=== PATIENT | female | born 1980 | race Caucasian/White ===

== ENCOUNTER 2016-11-20 13:53 | Emergency (ER) | payer OTHER ==
--- NOTE | ~2016-11-20 | CR93 ---
[facility] A Service of [facility] & [facility] RADIOLOGY TEXT RESULTS PATIENT: AMINA LANDAVERDE LOCATION: SED : 78 UNIT #: [id number] AGE: [address]: Albaro Alford SEX: F ORDER DR: [id number] [address] [address] [id number] E MR#: [id number] Acc #: [id number] NAME: AMINA LANDAVERDE : 1980 SEX: F STUDY DATE/TIME: 11/20/2016 14:42 UNIT: SED ROOM: STUDY DESCRIPTION: CR Elbow Min 3 Views Lt Attending Physician: Albaro Alford P.A.-C. Ordering Physician: Albaro Alford P.A.-C. Primary Care Physician: No Primary Care Physician MEDICAL IMAGING REPORT This report is preliminary unless electronic signature is present. EXAM Left elbow series. HISTORY Tripped and fell. Landed on knees and elbows. Left elbow pain. FINDINGS AP, lateral and oblique radiographs of the left elbow are presented. Normal bony mineralization. No traumatic fracture or malalignment. The joint spaces are intact. No joint effusion. No soft tissue defect, subcutaneous air or radiodense foreign body. Dictated by... Fred Gregg M.D. THIS IS AN ELECTRONICALLY VERIFIED REPORT Fred Gregg M.D. at 11/21/2016 10:49 PM LIBERTY/milka TD: 11/20/2016 19:05 JOB #: [id number] MEDICAL IMAGING REPORT Page 1 of 1
--- NOTE | ~2016-11-20 | CR21 ---
[facility] A Service of [facility] & [facility] RADIOLOGY TEXT RESULTS PATIENT: AMINA LANDAVERDE LOCATION: SED : 78 UNIT #: [id number] AGE: [address]: Albaro Alford SEX: F ORDER DR: [id number] [place] [id number] E MR#: [id number] Acc #: [id number] NAME: AMINA LANDAVERDE : 1980 SEX: F STUDY DATE/TIME: 11/20/2016 14:42 UNIT: SED ROOM: STUDY DESCRIPTION: CR Ankle Min 3 Views Rt Attending Physician: Albaro Alford P.A.-C. Ordering Physician: Albaro Alford P.A.-C. Primary Care Physician: No Primary Care Physician MEDICAL IMAGING REPORT This report is preliminary unless electronic signature is present. EXAM Right ankle series, 11/20/2016. HISTORY Trauma. Tripped, fell, rolled ankle, landed on knees and elbows, right lateral foot and ankle pain. FINDINGS AP, lateral and oblique radiographs of the right ankle are presented. No traumatic fracture or malalignment. Question mild soft tissue swelling lateral aspect of the ankle, likely related to the patient's stated trauma. This could in part be projectional in nature. Correlate with exam. No indication of joint effusion. No soft tissue defect, subcutaneous air or radiodense foreign body. Small plantar calcaneal spur. Dictated by... Fred Gregg M.D. THIS IS AN ELECTRONICALLY VERIFIED REPORT Fred Gregg M.D. at 11/21/2016 10:49 PM LIBERTY/milka TD: 11/20/2016 20:07 JOB #: [id number] MEDICAL IMAGING REPORT Page 1 of 1
--- NOTE | ~2016-11-20 | CR253 ---
[facility] A Service of [facility] & [facility] RADIOLOGY TEXT RESULTS PATIENT: AMINA LANDAVERDE LOCATION: SED : 78 UNIT #: [id number] AGE: [address]: Albaro Alford SEX: F ORDER DR: [id number] [address] [address] [id number] E MR#: [id number] Acc #: [id number] NAME: AMINA LANDAVERDE : 1980 SEX: F STUDY DATE/TIME: 11/20/2016 14:42 UNIT: SED ROOM: STUDY DESCRIPTION: CR Tibia and Fibula 2 Views Rt Attending Physician: Albaro Alford P.A.-C. Ordering Physician: Albaro Alford P.A.-C. Primary Care Physician: No Primary Care Physician MEDICAL IMAGING REPORT This report is preliminary unless electronic signature is present. EXAM Right lower leg, 2 views. HISTORY Tripped and fell, rolled ankle, complains of distal lower leg pain, ankle pain after fall today. FINDINGS Two views of the right lower leg demonstrates no fracture or dislocation. The visualized knee and ankle joint unremarkable. Prominence of the soft tissues may be related to body habitus. IMPRESSION Negative right lower leg. Dictated by... Miko Perez M.D. THIS IS AN ELECTRONICALLY VERIFIED REPORT Miko Perez M.D. at 11/24/2016 9:31 AM Martín TD: 11/20/2016 21:23 JOB #: [id number] MEDICAL IMAGING REPORT Page 1 of 1
--- NOTE | ~2016-11-20 | CR127 ---
[facility] A Service of [facility] & [facility] RADIOLOGY TEXT RESULTS PATIENT: AMINA LANDAVERDE LOCATION: SED : [birth year] UNIT #: [id number] AGE: [address]: Albaro Alford SEX: F ORDER DR: [id number] [address] [address] [id number] E MR#: [id number] Acc #: [id number] NAME: AMINA LANDAVERDE : 1980 SEX: F STUDY DATE/TIME: 11/20/2016 14:42 UNIT: SED ROOM: STUDY DESCRIPTION: CR Foot Complete Min 3 View Rt Attending Physician: Albaro Alford P.A.-C. Ordering Physician: Albaro Alford P.A.-C. Primary Care Physician: No Primary Care Physician MEDICAL IMAGING REPORT This report is preliminary unless electronic signature is present. EXAM Left foot series. HISTORY Tripped and fell; rolled ankle and landed on knees and elbows today. Right lateral foot and ankle pain. FINDINGS AP, lateral, and oblique radiographs of the right foot show normal bone mineralization. No traumatic fracture or malalignment. The joint spaces are intact. There is a small plantar calcaneal spur. No soft tissue defect, subcutaneous air, or radiodense foreign body. Dictated by... Fred Gregg M.D. THIS IS AN ELECTRONICALLY VERIFIED REPORT Fred Gregg M.D. at 11/21/2016 10:49 PM LIBERTY/willow TD: 11/20/2016 19:11 JOB #: [id number] MEDICAL IMAGING REPORT Page 1 of 1
[~2016-11-20 13:53] MED LIST: BIRTH CONTROL; CLINDAMYCIN HC300 MG PO; ERY-TAB500 MG PO; FLEXERIL10 M1 PO; KEFLEX500 M1 PO; LEVAQUIN PO; NAPROSYN500 MG PO; NO MEDICATIONS; PERCOCET PO; STOOL SOFTNER; VICODIN 5/500 T1 TAB PO; VOLTAREN75 MG PO; ZITHROMAX PO; ZOLOFT50 MG PO; [UNRECOGNIZED DRUG - OTHER]
== END 2016-11-20 16:43 | disposition home or self-care (01) ==
LOC: SED 13:53
DX: S93.401A Sprain of unspecified ligament of right ankle, initial encounter (principal); Z88.0 Allergy status to penicillin; F17.200 Nicotine dependence, unspecified, uncomplicated; W01.0XXA Fall on same level from slipping, tripping and stumbling without subsequent striking against object, initial encounter; Y92.9 Unspecified place or not applicable
CPT/HCPCS: 29540; 73080; 73590; 73610; 73630; 99283

== ENCOUNTER 2016-12-07 17:42 | Emergency (ER) | payer OTHER ==
[2016-12-07] MEDS ORDERED: BIRTH CONTROL PILL (17:47)
== END 2016-12-07 19:40 | disposition home or self-care (01) ==
LOC: SED 17:42
DX: I89.1 Lymphangitis (principal); F17.210 Nicotine dependence, cigarettes, uncomplicated; Z88.0 Allergy status to penicillin
CPT/HCPCS: 87651; 99283